=== PATIENT | male | born 1995 | race African-American/Black ===

== ENCOUNTER 2017-06-05 21:23 | Emergency (ER) | payer MEDICAID ==
[~2017-06-05] VITALS: Ht 182.9 cm; Wt 72.0 kg
[2017-06-06] MEDS ORDERED: ACETAMINOPHEN 500MG TABLET PO ONE
[2017-06-06] MEDS ORDERED: IBUPROFEN 400MG TABLET PO ONE
[2017-06-06 01:36] VITALS: BP 120/80
== END 2017-06-06 01:39 | disposition home or self-care (01) ==
LOC: ER 21:23
DX: S80.01XA Contusion of right knee, initial encounter (principal); R55 Syncope and collapse; V43.52XA Car driver injured in collision with other type car in traffic accident, initial encounter; Y93.89 Activity, other specified; Y92.410 Unspecified street and highway as the place of occurrence of the external cause; Y99.8 Other external cause status
CPT/HCPCS: 70450; 72125; 73562; 99284

== ENCOUNTER 2017-09-03 14:00 | Emergency (ER) | payer MEDICAID ==
[~2017-09-03] VITALS: Ht 170.2 cm; Wt 72.0 kg
[2017-09-03] MEDS ORDERED: CEFTRIAXONE SODIUM 250 MG/VIAL IM ONE (16:30)
[2017-09-03] MEDS ORDERED: AZITHROMYCIN 500 MG TABLET PO ONE (16:30)
[2017-09-03 17:00] VITALS: BP 115/66
[2017-09-03 17:02] LABS: CLARITY URINE CLEAR (CLEAR); COLOR URINE YELLOW (YELLOW); KETONES URINE NEGATIVE (NEGATIVE); LEUKOCYTE ESTERASE URINE NEGATIVE (NEGATIVE); NITRITE URINE NEGATIVE (NEGATIVE); OCCULT BLOOD URINE NEGATIVE (NEGATIVE); PH URINE 5.5 (4.5-8.0); PROTEIN URINE NEGATIVE (NEGATIVE); SPECIFIC GRAVITY URINE 1.022 (1.005-1.030)
[2017-09-06 04:15] LABS: CHLAMYDIA TRACHOMATIS NAA Negative (Negative); NEISSERIA GONORRHOEAE NAA Negative (Negative)
== END 2017-09-03 17:03 | disposition home or self-care (01) ==
LOC: ER 16:17
DX: N34.2 Other urethritis (principal)
CPT/HCPCS: 81003; 87491; 87591; 96372; 99284; J0696; Z7610